=== PATIENT | female | born 1935 | race Caucasian/White ===

== ENCOUNTER 2016-11-11 09:19 | Outpatient (CLI) | payer OTHER ==
[2016-11-11 10:30] LABS: ALBUMIN/GLOBULIN RATIO 2.3 (1.0-2.2); BILIRUBIN,TOTAL 2.4 mg/dL (0.2-1.0); BUN - BLOOD UREA NITROGEN 15 mg/dL (6-20); CALCIUM 9.6 mg/dL (8.5-10.3); CARBON DIOXIDE - CO2 29 mmol/L (21-32); CHLORIDE 104 mmol/L (101-111); CHOL/HDL RATIO 2.6 (<4.4); CHOLESTEROL 157 mg/dL; CREATININE 0.6 mg/dL (0.4-1.0); GFR - MDRD 95 (>89); GLUCOSE 103 mg/dL (70-100); HDL CHOLESTEROL 60 mg/dL; LDL/HDL RATIO 1.4 (<4.4); POTASSIUM 4.2 mmol/L (3.5-5.0); SODIUM 140 mmol/L (135-145); TOTAL PROTEIN 6.2 g/dL (6.7-8.2); TRIGLYCERIDES 79 mg/dL; VLDL CHOLESTEROL 16 mg/dL
== END 2016-11-11 09:20 | disposition home or self-care (01) ==
LOC: LAB 09:19
PROVIDERS: ATTEND Physician Assistant Medical
DX: Z51.81 Encounter for therapeutic drug level monitoring (principal)
CPT/HCPCS: 36415; 80053; 80061

== ENCOUNTER 2017-08-10 17:15 | Outpatient (CLI) | payer MEDICARE | END 2017-08-10 17:16 | disposition home or self-care (01) | LOC: LAB.N 17:15 | PROVIDERS: ATTEND Family Medicine | DX: Z53.9 Procedure and treatment not carried out, unspecified reason (principal) | CPT/HCPCS: 36415; 80053; 80061; 83721 ==

== ENCOUNTER 2017-09-25 09:28 | Outpatient (CLI) | payer MEDICARE | END 2017-09-25 09:29 | disposition EMS.NT | LOC: EMS 09:28 | PROVIDERS: ATTEND Surgery | DX: Z03.89 Encounter for observation for other suspected diseases and conditions ruled out (principal) ==

== ENCOUNTER 2017-09-25 17:01 | Outpatient (CLI) | payer MEDICARE ==
--- NOTE | 2017-09-25 17:44 | XRAY Report ---
EXAM: THORACIC SPINE RADIOGRAPHY EXAM DATE: 09/25/2017 05:32 PM. CLINICAL HISTORY: ELDERLY FALL. COMPARISON: None. TECHNIQUE: 2 views. FINDINGS: Alignment: No spondylolisthesis. Mild left convexity mid thoracic scoliosis. Bones: No fractures or bone lesions. Disks: Diffuse age-related disk and endplate degenerative changes. Soft Tissues: Normal. The visualized lungs and cardiomediastinal silhouette are normal. IMPRESSION: No acute compression fracture. [facility] Referring Provider Line: [phone] SITE ID: [id number]
--- NOTE | 2017-09-25 17:46 | XRAY Preliminary Report ---
Exam: XR LUMBAR SPINE 2 VIEW IMPRESSION: 1. No acute fracture. 2. Advanced, diffuse disk related degenerative changes. [facility] SITE ID: [id number]
--- NOTE | 2017-09-25 17:46 | XRAY Report ---
EXAM: LUMBOSACRAL SPINE RADIOGRAPHY EXAM DATE: 09/25/2017 05:32 PM. CLINICAL HISTORY: ELDERLY FALL. COMPARISONS: None. TECHNIQUE: 2 views. FINDINGS: Alignment: Mild thoracolumbar kyphosis. Bones: Five cca-ddp-rjkogyv lumbar vertebral bodies are present. No fractures or bone lesions. Disks: Moderate to severe degenerative disk space narrowing with associated endplate sclerosis and sp urring at T12-L1, L1-L2, L2-L3, L3-L4 and L4-L5. Is also mild degenerative disk disease at L5-S1. Facets: Mild multilevel lower lumbar facet joint arthropathy. Sacroiliac Joints: Unremarkable. Soft Tissues: Normal. The visualized bowel gas pattern is normal. IMPRESSION: 1. No acute fracture. 2. Advanced, diffuse disk related degenerative changes. [facility] Referring Provider Line: [phone] SITE ID: [id number]
--- NOTE | 2017-09-25 17:51 | CT Report ---
EXAM: CT CERVICAL SPINE WITHOUT CONTRAST DATE: 09/25/2017 05:26 PM. HISTORY: ELDERLY FALL. COMPARISONS: None. TECHNIQUE: Thin-section axial images were acquired of the cervical spine without contrast. Post-proce ssing: Coronal and sagittal reformats. Other: None. In accordance with CT protocol optimization, one or more of the following dose reduction techniques w ere utilized for this exam: automated exposure control, adjustment of mA and/or KV based on patient s ize, or use of iterative reconstructive technique. FINDINGS: Alignment: No scoliosis or spondylolisthesis. Bones: No fracture or bone lesion. Interspace Levels/Facets: C4-C5 degenerative disk space narrowing with posterior bulging disk osteoph yte complex resulting in mild bilateral neural foraminal stenosis. Asymmetric bulging disk osteophyte complex at C5-C6 and C6-C7 resulting in mild left neural foraminal stenosis. Fusion of the left C3-C 4 posterior elements likely degenerative. Musculature: Normal. No fatty atrophy. Other: The paravertebral and prevertebral soft tissues are unremarkable. Bilateral carotid artery lisa cified plaque noted. There is a tortuous, medialized right common and internal carotid artery. IMPRESSION: 1. No cervical spine fracture or malalignment. 2. Disk and facet joint related degenerative changes resulting in mild bilateral neural foraminal efe nosis at C4-C5 and the left neural frontal stenosis at C5-C6 and C6-C7. 3. Right retropharyngeal carotid artery. [facility] Referring Provider Line: [phone] SITE ID: [id number]
--- NOTE | 2017-09-25 17:51 | CT Preliminary Report ---
Exam: CT CERVICAL SPINE W/O IMPRESSION: 1. No cervical spine fracture or malalignment. 2. Disk and facet joint related degenerative changes resulting in mild bilateral neural foraminal efe nosis at C4-C5 and the left neural frontal stenosis at C5-C6 and C6-C7. 3. Right retropharyngeal carotid artery. [facility] SITE ID: [id number]
--- NOTE | 2017-09-25 18:08 | CT Report ---
EXAM: CT HEAD EXAM DATE: 09/25/2017 05:25 PM. CLINICAL HISTORY: 82-year-old with frequent falls and recent fall on the morning of 09/25/2017 presenti ng with headache and dizziness COMPARISON: CT head 02/02/2014. TECHNIQUE: Multiaxial CT images were obtained from the foramen magnum to the vertex. Reformats: Coron al. IV contrast: None. In accordance with CT protocol optimization, one or more of the following dose reduction techniques w ere utilized for this exam: automated exposure control, adjustment of mA and/or KV based on patient s ize, or use of iterative reconstructive technique. FINDINGS: Parenchyma: No acute parenchymal hemorrhage, mass, or midline shift. There is mild bilateral areas wi th Attenuation seen similar to 02/06/2014. No convincing CT evidence of acute infarct. Extraaxial Spaces: Prominence of the sulci that appear appropriate for the extent of volume loss. No subdural or epidural collections identified. Cisterns appear patent. Ventricles: Normal in size and position. Sinuses and Orbits: Changes of bilateral lens replacement. Visualized paranasal sinuses, mastoid air cells, and middle ear cavities appear clear. Bones: No evidence of fracture or calvarial defect. Mild to moderate bilateral temporomandibular join t osteoarthrosis. Other: Vascular calcifications of the cavernous ICA segments. IMPRESSION: 1. No definite acute intracranial hemorrhage, acute infarct, mass, hydrocephalus, or midline shift. 2. No definite calvarial fracture. 3. Mild white matter changes that appear similar to CT 02/06/2014 and may represent sequela of chronic small vessel ischemic disease. [facility] The call report notification system was initiated by Dr. Tee Flores at 18:04 hrs on 09/25. The above findings were discussed with Dr. Yenifer Dr by Dr. Tee Flores at 18:06 hrs o n 09/25/17. Referring Provider Line: [phone] SITE ID: [id number]
== END 2017-09-25 17:02 | disposition home or self-care (01) ==
LOC: DI 17:01
PROVIDERS: ATTEND Family Medicine
DX: M50.321 Other cervical disc degeneration at C4-C5 level (principal); M47.892 Other spondylosis, cervical region; M51.34 Other intervertebral disc degeneration, thoracic region; S09.90XA Unspecified injury of head, initial encounter; M51.36 Other intervertebral disc degeneration, lumbar region; M47.896 Other spondylosis, lumbar region
CPT/HCPCS: 70450; 72072; 72100; 72125

== ENCOUNTER 2017-11-23 08:00 | Outpatient (CLI) | payer MEDICARE ==
[2017-11-23 13:04] LABS: ALBUMIN 4.2 g/dL (3.2-5.5); ALBUMIN/GLOBULIN RATIO 1.8 (1.0-2.2); ALKALINE PHOSPHATASE 59 IU/L (42-121); ALT ALANINE AMINOTRANSFERASE 23 IU/L (10-60); AST ASPARTATE AMINOTRANSFERASE 39 IU/L (10-42); BILIRUBIN,TOTAL 2.1 mg/dL (0.2-1.0); BUN - BLOOD UREA NITROGEN 13 mg/dL (6-20); CARBON DIOXIDE - CO2 26 mmol/L (21-32); CHLORIDE 102 mmol/L (101-111); CHOL/HDL RATIO 3.5 (<4.4); CHOLESTEROL 167 mg/dL; CREATININE 0.6 mg/dL (0.4-1.0); GFR - MDRD 95 (>89); GLUCOSE 99 mg/dL (70-100); HDL CHOLESTEROL 48 mg/dL; LDL CHOLESTEROL,CALCULATED 91 mg/dL; LDL/HDL RATIO 1.9 (<4.4); SODIUM 135 mmol/L (135-145); TOTAL PROTEIN 6.5 g/dL (6.7-8.2); VLDL CHOLESTEROL 28 mg/dL
== END 2017-11-23 08:01 | disposition home or self-care (01) ==
LOC: LAB.N 08:00
PROVIDERS: ATTEND Family Medicine
DX: E78.5 Hyperlipidemia, unspecified (principal); Z51.81 Encounter for therapeutic drug level monitoring; Z79.899 Other long term (current) drug therapy
CPT/HCPCS: 36415; 80053; 80061; 83721

== ENCOUNTER 2018-02-15 08:00 | Outpatient (CLI) | payer MEDICARE ==
[2018-02-15 12:28] LABS: ALBUMIN 4.1 g/dL (3.2-5.5); ALBUMIN/GLOBULIN RATIO 1.9 (1.0-2.2); ALKALINE PHOSPHATASE 63 IU/L (42-121); ALT ALANINE AMINOTRANSFERASE 20 IU/L (10-60); AST ASPARTATE AMINOTRANSFERASE 33 IU/L (10-42); BILIRUBIN,TOTAL 2.1 mg/dL (0.2-1.0); BUN - BLOOD UREA NITROGEN 15 mg/dL (6-20); CARBON DIOXIDE - CO2 24 mmol/L (21-32); CHLORIDE 103 mmol/L (101-111); CHOL/HDL RATIO 3.3 (<4.4); CHOLESTEROL 157 mg/dL; CREATININE 0.6 mg/dL (0.4-1.0); GFR - MDRD 95 (>89); GLUCOSE 94 mg/dL (70-100); HDL CHOLESTEROL 47 mg/dL; LDL CHOLESTEROL,CALCULATED 86 mg/dL; LDL/HDL RATIO 1.8 (<4.4); SODIUM 136 mmol/L (135-145); TOTAL PROTEIN 6.3 g/dL (6.7-8.2); VLDL CHOLESTEROL 24 mg/dL
== END 2018-02-15 08:01 | disposition home or self-care (01) ==
LOC: LAB.N 08:00
PROVIDERS: ATTEND Family Medicine
DX: E78.5 Hyperlipidemia, unspecified (principal)
CPT/HCPCS: 36415; 80053; 80061; 83721

== ENCOUNTER 2018-08-19 12:24 | Outpatient (CLI) | payer MEDICARE ==
--- NOTE | 2018-08-19 16:03 | XRAY Report ---
Reason: SACROILIAC JOINT PAIN,LEFT Procedure Date: 08/19/2018 Accession Number: [id number] / [id number] Procedure: XR - Lumbar Spine 2 View CPT Code: FULL RESULT: EXAM: LUMBOSACRAL SPINE RADIOGRAPHY EXAM DATE: 08/19/2018 01:25 PM. CLINICAL HISTORY: Sacroiliac joint pain, left. COMPARISONS: LUMBAR SPINE 2 VIEW 09/25/2017 5:16 PM. TECHNIQUE: 3 views. FINDINGS: Alignment: Approximately 7 mm of lateral translation of L4 on L5 appears stable compared to prior. No spondylolisthesis is identified. Bones: The bones are qualitatively osteopenic; this limits evaluation for underlying fractures or masses. Five dji-fgt-zreowjp lumbar vertebral bodies are present. No fractures or bone lesions. Disks: Redemonstration of multilevel degenerative disk disease with loss of disk space height throughout the lumbar spine with endplate sclerosis and marginal osteophytosis. Facets: Redemonstration of marked multilevel facet arthropathy which is severe at the L4 and L5 levels. Sacroiliac Joints: Stable appearance without overt sclerosis or fracture. Soft Tissues: Normal. The visualized bowel gas pattern is normal. IMPRESSION: Marked degenerative changes of the lumbar spine with stable appearance of sacroiliac joints. [facility]
== END 2018-08-19 12:25 | disposition home or self-care (01) ==
LOC: DI 12:24
PROVIDERS: ATTEND Family Medicine
DX: M53.3 Sacrococcygeal disorders, not elsewhere classified (principal); M51.36 Other intervertebral disc degeneration, lumbar region
CPT/HCPCS: 72100

== ENCOUNTER 2019-01-14 08:00 | Outpatient (CLI) | payer MEDICARE | END 2019-01-14 23:59 | disposition home or self-care (01) | LOC: LAB.R 08:00 | PROVIDERS: ATTEND Family Medicine | DX: R19.7 Diarrhea, unspecified (principal) | CPT/HCPCS: 81599; 83630; 87045; 87046; 87329; 87493 ==

== ENCOUNTER 2019-08-08 08:00 | Outpatient (CLI) | payer MEDICARE ==
[2019-08-08 13:00] LABS: CHOL/HDL RATIO 3.3 (<4.4); CHOLESTEROL 150 mg/dL; HDL CHOLESTEROL 45 mg/dL; LDL CHOLESTEROL,CALCULATED 78 mg/dL; LDL/HDL RATIO 1.7 (<4.4); VLDL CHOLESTEROL 27 mg/dL
== END 2019-08-08 23:59 | disposition home or self-care (01) ==
LOC: LAB.N 08:00
PROVIDERS: ATTEND Family Medicine
DX: E78.5 Hyperlipidemia, unspecified (principal)
CPT/HCPCS: 36415; 80061; 83721

== ENCOUNTER 2019-08-09 09:22 | Outpatient (CLI) | payer MEDICARE | END 2019-08-09 09:23 | disposition home or self-care (01) | LOC: DI 09:22 | PROVIDERS: ATTEND Family Medicine | DX: R01.1 Cardiac murmur, unspecified (principal); I08.0 Rheumatic disorders of both mitral and aortic valves; I11.9 Hypertensive heart disease without heart failure | CPT/HCPCS: 93306 ==

== ENCOUNTER 2020-07-31 19:00 | Emergency (ER) | payer MEDICARE ==
[2020-07-31 19:12] VITALS: BP 172/77
[2020-07-31] MEDS ORDERED: TRANEXAMIC ACID 1,000 MG/10 ML VIAL NAS STA (19:54)
[2020-07-31 20:01] LABS: BASOPHILS % (AUTO) 0.2 %; EOSINOPHILS % (AUTO) 0.2 %; HGB - HEMOGLOBIN 10.5 g/dL (12.0-16.0); LYMPHOCYTES # (AUTO) 0.6 10^3/uL (1.5-3.5); LYMPHOCYTES % (AUTO) 13.5 %; MEAN CORPUSCULAR HEMOGLOBIN 34.5 pg (27.0-31.0); MEAN CORPUSCULAR HGB CONC 32.5 g/dL (32.0-36.0); MEAN CORPUSCULAR VOLUME 106.3 fL (81.0-99.0); MONOCYTES # (AUTO) 0.9 10^3/uL (0.0-1.0); MONOCYTES % (AUTO) 21.4 %; NEUTROPHILS # (AUTO) 2.6 10^3/uL (1.5-6.6); RED BLOOD COUNT 3.04 10^6/uL (4.20-5.40); RED CELL DISTRIBUTION WIDTH 17.4 % (12.0-15.0); WHITE BLOOD COUNT 4.1 x10^3/uL (4.8-10.8)
[2020-07-31 20:16] LABS: PLT - PLATELET COUNT 32 10^3/uL (130-450)
--- NOTE | 2020-07-31 20:30 | ED Physician Documentation ---
History of Present Illness - Stated complaint Stated Complaint: NOSE BLEED - Chief complaint Chief Complaint: Heent - History obtained from History obtained from: Patient - History of Present Illness Timing: Today Pain level max: 0 Pain level now: 0 - Additonal information Additional information: 85 year old female with a history of myelodysplastic syndrome presents to the emergency department with intermittent epistaxis since receiving a Covid swab yesterday. She has chronic thrombocytopenia. Not anticoagulated. Not currently bleeding. 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 : None HEENT: Chronic vision loss Psych: None Musculoskeletal: None Derm: None Other Past Medical History: MDS - Past Surgical History Past Surgical History: Yes Ortho: Knee replacement HEENT: Tonsil/Adenoidectomy - Present Medications Home Medications: Ambulatory Orders Medication Instructions Recorded Confirmed Acetaminophen [Tylenol] 650 mg PO HS 02/01/13 07/31/20 Calcium Carbonate [Calcium] 600 mg PO BID 02/01/13 07/31/20 Cholecalciferol (Vitamin D3) 0 unit PO DAILY 02/01/13 07/31/20 [Vitamin D] Flecainide [Tambocar] 100 mg PO Q12H 02/01/13 07/31/20 Multivitamin [Multivitamins] 1 each PO DAILY 02/01/13 07/31/20 Potassium Chloride [Klor-Con 10] 10 meq PO DAILY 02/01/13 07/31/20 Simvastatin 10 mg PO HS 02/01/13 07/31/20 Oxybutynin [Ditropan] 10 mg PO DAILY 09/02/16 07/31/20 Suvorexant [Belsomra] 5 mg PO DAILY 10/28/16 07/31/20 LORazepam [Lorazepam] 0.5 mg PO DAILY PRN #30 tablet 02/24/18 07/31/20 Nystatin/Triamcin 1 applic TOP DAILY 07/31/20 07/31/20 [Nystatin-Triamcinolone Cream] - Allergies Allergies/Adverse Reactions: Allergies Allergy/AdvReac Type Severity Reaction Status Date / Time No Known Drug Allergies Allergy Verified 07/31/20 19:06 - Social History Does the pt smoke?: No Smoking Status: Never smoker Does the pt drink ETOH?: No Does the pt have substance abuse?: No - Immunizations Immunizations are current?: Yes PD ED PE NORMAL - Vitals Vital signs reviewed: Yes - General General: Alert and oriented X 3, No acute distress - HEENT HEENT: PERRL, Moist mucous membranes, Pharynx benign, Other (dried blood in R nare.) - Neck Neck: Supple, no meningeal sign - Cardiac Cardiac: RRR, Strong equal pulses - Respiratory Respiratory: No respiratory distress, Clear bilaterally - Derm Derm: Warm and dry - Neuro Neuro: Alert and oriented X 3 Results - Vitals Vitals: Vital Signs - 24 hr 07/31/20 19:07 Temperature 36.5 C Heart Rate 89 Respiratory 18 Rate Blood Pressure 172/77 H O2 Saturation 98 Oxygen O2 Source Room air - Labs Labs: Laboratory Tests 07/31/20 19:55 WBC 4.1 L RBC 3.04 L Hgb 10.5 L Hct 32.3 L MCV 106.3 H MCH 34.5 H MCHC 32.5 RDW 17.4 H Plt Count 32 L* MPV TNP Neut # (Auto) 2.6 Lymph # (Auto) 0.6 L [place] # (Auto) 0.9 Eos # (Auto) 0.0 Baso # (Auto) 0.0 Absolute Nucleated RBC 0.03 Nucleated RBC % 0.7 Platelet Estimate DECREASED (<130,000) Platelet Morphology 1+ LARGE PLATELETS RBC Morph Micro Appear 1+ OVALOCYTES PD MEDICAL DECISION MAKING - ED course Complexity details: reviewed results, considered differential, d/w patient, d/w family ED course: Patient with chronic thrombocytopenia that is unchanged. No new lab abnormalities. No further bleeding in the emergency department. Intranasal TXA was used to stabilize the clot. Patient counseled not to blow or pick her nose for the next several days to help stabilize the clot. Patient counseled regarding signs and symptoms for which I believe and urgent re-evaluation would be necessary. Patient with good understanding of and agreement to plan and is comfortable going home at this time This document was made in part using voice recognition software. While efforts are made to proofread this document, sound alike and grammatical errors may occur. Departure - Departure Disposition: 01 Home, Self Care Clinical Impression: Epistaxis Condition: Good Instructions: ED Nosebleed Follow-Up: Dedra Pereira DO [Primary Care Provider] - Within 1 week Comments: Return if you worsen. Follow up with your doctor for further care as needed. You can use the nose clamp for any further bleeding. Discharge Date/Time: 07/31/20 20:35
[2020-07-31 20:40] LABS: PLATELET ESTIMATE, MANUAL DECREASED (<130,000) (NORMAL); PLATELET MORPHOLOGY 1+ LARGE PLATELETS (NORMAL)
== END 2020-07-31 20:35 | disposition home or self-care (01) ==
LOC: ED 19:00
DX: R04.0 Epistaxis (principal); D69.6 Thrombocytopenia, unspecified; D46.9 Myelodysplastic syndrome, unspecified; I10 Essential (primary) hypertension
CPT/HCPCS: 36415; 85025; 99283; 99284

== ENCOUNTER 2020-10-26 12:50 | Emergency (ER) | payer MEDICARE ==
--- NOTE | 2020-10-26 13:30 | ED Physician Documentation ---
PD HPI SKIN - Stated complaint Stated Complaint: LUMP ON NECK - Chief complaint Chief Complaint: Wound - History obtained from History obtained from: Patient - History of Present Illness Timing - onset: How many days ago (3) Timing - duration: Days (3) Timing - details: Abrupt onset, Still present (she has had small lump at upper right back/lower neck for about a year, not tender. Has gotten increasingly larger with redness and tender the past 3 days. No drainage.) Location: Back (right upper, just below lateral neck.) Quality / character: Painful, Discolored (red at site and surrounding.), Raised, Swelling. 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 : None HEENT: Chronic vision loss Psych: None Musculoskeletal: None Derm: None - Past Surgical History Past Surgical History: Yes Ortho: Knee replacement HEENT: Tonsil/Adenoidectomy - Present Medications Home Medications: Ambulatory Orders Medication Instructions Recorded Confirmed Acetaminophen [Tylenol] 650 mg PO HS 02/01/13 10/09/20 Calcium Carbonate [Calcium] 600 mg PO BID 02/01/13 10/09/20 Cholecalciferol (Vitamin D3) 0 unit PO DAILY 02/01/13 10/09/20 [Vitamin D] Flecainide [Tambocar] 100 mg PO Q12H 02/01/13 10/09/20 Multivitamin [Multivitamins] 1 each PO DAILY 02/01/13 10/09/20 Potassium Chloride [Klor-Con 10] 10 meq PO DAILY 02/01/13 10/09/20 Simvastatin 10 mg PO HS 02/01/13 10/09/20 Oxybutynin [Ditropan] 10 mg PO DAILY 09/02/16 10/09/20 Suvorexant [Belsomra] 5 mg PO DAILY 10/28/16 10/09/20 LORazepam [Lorazepam] 0.5 mg PO DAILY PRN #30 tablet 02/24/18 10/09/20 Nystatin/Triamcin 1 applic TOP DAILY 07/31/20 10/09/20 [Nystatin-Triamcinolone Cream] Doxycycline Hyclate 100 mg PO BID #14 10/26/20 Mupirocin Calcium [Mupirocin] 1 applic TP TID #15 gm 10/26/20 - Allergies Allergies/Adverse Reactions: Allergies Allergy/AdvReac Type Severity Reaction Status Date / Time diphenhydramine Allergy Unknown Verified 10/26/20 12:57 - Social History Does the pt smoke?: No Smoking Status: Never smoker Does the pt drink ETOH?: No Does the pt have substance abuse?: No - Immunizations Immunizations are current?: Yes PD ED PE NORMAL - Vitals Vital signs reviewed: Yes - General General: Alert and oriented X 3, Well developed/nourished - Derm Derm: Normal color, Warm and dry, Other (right upper back just at trapezius upper border with rounded, raised, red fluctuance skin abscess with some central friability of the skin (looks red and thin) but not draining. Surrounding tissue with redness and tenderness. Abscess is about 2.5 cm diameter and raised 1 cm. ) - Neuro Neuro: Alert and oriented X 3, No motor deficit, No sensory deficit, Normal speech Results - Vitals Vitals: Vital Signs - 24 hr 10/26/20 10/26/20 12:57 14:27 Temperature 36.6 C 36.8 C Heart Rate 80 79 Respiratory 16 16 Rate Blood Pressure 147/63 H 141/65 H O2 Saturation 97 97 Oxygen O2 Source Room air - Labs Labs: Microbiology 10/26/20 14:16 Wound Culture - Preliminary Back - Upper Procedures - Abscess I&D (location) right upper thoracic back Preparation: Lidocaine 1%, With epi Incision: Incised with scalpel, Purulent drainage (as well as thicker sebaceum), Irrigated, Culture obtained. No: Packed Other: Pt tolerated well, Dressing applied, Antibiotic prescribed PD MEDICAL DECISION MAKING - ED course Complexity details: considered differential (upper back (upper right thoracic) abscess that seems initially sebaceous cyst that is now infected. ), d/w patient Departure - Departure Disposition: 01 Home, Self Care Clinical Impression: Abscess of back Condition: Stable Record reviewed to determine appropriate education?: Yes Instructions: ED Abscess IandD Follow-Up: Dedra Pereira DO [Primary Care Provider] - Prescriptions: Doxycycline Hyclate 100 mg PO BID #14 Mupirocin Calcium [Mupirocin] 1 applic TP TID #15 gm Comments: You can put warm moist towels over the area periodically to help dry out some of the infection fluid and provide good blood flow to the area. Its not clear show that you do so however. It is okay to wash and shower as usual. Clean the area with soap and water twice daily and apply mupirocin antibiotic ointment locally to the area. Regular dressing over it as its likely to have some drainage over the next few days. Doxycycline antibiotic twice daily for the next week. We did do a culture of the purulent fluid and the results of that should come in a couple of days. We will call you if we need to modify the antibiotic choice based on that. Tylenol every 4 hours if needed for pains. Discharge Date/Time: 10/26/20 14:35
[2020-10-26] MEDS ORDERED: ACETAMINOPHEN 325 MG TABLET PO STA (14:05)
[2020-10-26] MEDS ORDERED: DOXYCYCLINE 100 MG TABLET PO STA (14:05)
[2020-10-26 14:28] VITALS: BP 141/65
== END 2020-10-26 14:35 | disposition home or self-care (01) ==
LOC: ED 12:50
DX: L02.212 Cutaneous abscess of back [any part, except buttock and flank] (principal); I10 Essential (primary) hypertension
CPT/HCPCS: 10060; 87070; 87205; 99283; A9270

== ENCOUNTER 2021-07-01 08:43 | Outpatient (CLI) | payer MEDICARE ==
[2021-07-01 09:30] LABS: CHOL/HDL RATIO 3.3 (<4.4); CHOLESTEROL 123 mg/dL; HDL CHOLESTEROL 37 mg/dL; LDL CHOLESTEROL,CALCULATED 64 mg/dL; LDL/HDL RATIO 1.7 (<4.4); TRIGLYCERIDES 109 mg/dL; VLDL CHOLESTEROL 22 mg/dL
[2021-07-01 10:27] LABS: ESTIMATED AVERAGE GLUCOSE 71 mg/dL (70-100); HEMOGLOBIN A1c% 4.1 % (4.27-6.07)
== END 2021-07-01 08:44 | disposition home or self-care (01) ==
LOC: LAB 08:43
PROVIDERS: ATTEND Family Medicine
DX: E78.5 Hyperlipidemia, unspecified (principal); R73.01 Impaired fasting glucose
CPT/HCPCS: 36415; 80061; 83036; 83721

== ENCOUNTER 2021-08-18 14:41 | Emergency (ER) | payer MEDICARE ==
[2021-08-18 14:49] VITALS: BP 137/59
[2021-08-18] MEDS ORDERED: TRANEXAMIC ACID 1,000 MG/10 ML VIAL NAS STA (14:58)
--- NOTE | 2021-08-18 15:02 | ED Physician Documentation ---
History of Present Illness - Stated complaint Stated Complaint: nose bleed - Chief complaint Chief Complaint: Heent - History obtained from History obtained from: Patient - History of Present Illness Timing: Today Pain level max: 0 Pain level now: 0 - Additonal information Additional information: This is an 86-year-old female who has had a nosebleed earlier today, resolved now. Has a history of chronic thrombocytopenia secondary to myelodysplastic syndrome. She is not anticoagulated. No trauma. Better with pressure, nothing makes it worse. 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 : None HEENT: Chronic vision loss Psych: None Musculoskeletal: None Derm: None - Past Surgical History Past Surgical History: Yes Ortho: Knee replacement HEENT: Tonsil/Adenoidectomy - Present Medications Home Medications: Ambulatory Orders Medication Instructions Recorded Confirmed Acetaminophen [Tylenol] 650 mg PO HS 02/01/13 07/16/21 Calcium Carbonate [Calcium] 600 mg PO BID 02/01/13 07/16/21 Cholecalciferol (Vitamin D3) 0 unit PO DAILY 02/01/13 07/16/21 [Vitamin D] Flecainide [Tambocar] 100 mg PO Q12H 02/01/13 07/16/21 Multivitamin [Multivitamins] 1 each PO DAILY 02/01/13 07/16/21 Potassium Chloride [Klor-Con 10] 10 meq PO DAILY 02/01/13 07/16/21 Simvastatin 10 mg PO HS 02/01/13 07/16/21 Oxybutynin [Ditropan] 10 mg PO DAILY 09/02/16 07/16/21 Suvorexant [Belsomra] 5 mg PO DAILY 10/28/16 07/16/21 LORazepam [Lorazepam] 0.5 mg PO DAILY PRN #30 tablet 02/24/18 07/16/21 Nystatin/Triamcin 1 applic TOP DAILY 07/31/20 07/16/21 [Nystatin-Triamcinolone Cream] Doxycycline Hyclate 100 mg PO BID #14 10/26/20 07/16/21 Mupirocin Calcium [Mupirocin] 1 applic TP TID #15 gm 10/26/20 07/16/21 - Allergies Allergies/Adverse Reactions: Allergies Allergy/AdvReac Type Severity Reaction Status Date / Time diphenhydramine Allergy Unknown Verified 08/18/21 14:50 - Social History Does the pt smoke?: No Smoking Status: Never smoker Does the pt drink ETOH?: No Does the pt have substance abuse?: No - Immunizations Immunizations are current?: Yes - POLST Patient has POLST: No PD ED PE NORMAL - Vitals Vital signs reviewed: Yes - General General: Alert and oriented X 3, No acute distress - HEENT HEENT: Moist mucous membranes, Other (Small amount of dried blood in the left nare. No active bleeding.) - Neck Neck: Supple, no meningeal sign - Cardiac Cardiac: RRR - Respiratory Respiratory: No respiratory distress, Clear bilaterally - Derm Derm: Warm and dry - Neuro Neuro: Alert and oriented X 3 - Psych Psych: Normal mood, Normal affect Results - Vitals Vitals: Vital Signs - 24 hr 08/18/21 14:45 Temperature 36.3 C L Heart Rate 83 Respiratory 20 Rate Blood Pressure 137/59 H O2 Saturation 97 Oxygen O2 Source Room air - Labs Labs: Laboratory Tests 08/18/21 14:56 WBC 6.3 RBC 2.52 L Hgb 9.1 L Hct 27.9 L MCV 110.7 H MCH 36.1 H MCHC 32.6 RDW 19.5 H Plt Count 22 L* MPV TNP Neut # (Auto) Not Reportable Lymph # (Auto) Not Reportable [place] # (Auto) Not Reportable Eos # (Auto) Not Reportable Baso # (Auto) Not Reportable Absolute Nucleated RBC Not Reportable Total Counted 100 Band Neuts % (Manual) 3 Reactive Lymphs % (Man) 2 Abnorm Lymph % (Manual) 0 Blast Cells % 13 H* Nucleated RBC % Not Reportable Neutrophils # (Manual) 2.8 Lymphocytes # (Manual) 1.8 Monocytes # (Manual) 0.8 Eosinophils # (Manual) 0.1 Basophils # (Manual) 0.0 Nucleated RBCs 3 Differential Comment MANUAL DIFFERENTIAL Manual Slide Review Indicated Platelet Estimate DECREASED (<130,000) Platelet Morphology 1+ LARGE PLATELETS RBC Morph Micro Appear 1+ BASO STIPPLING PD MEDICAL DECISION MAKING - ED course Complexity details: reviewed old records, reviewed results, re-evaluated linae nt, considered differential, d/w patient ED course: 86-year-old female with resolved epistaxis. Tranexamic acid was placed into the nare and pressure applied. No further bleeding. Platelets are stable. We will have her follow-up with her doctor for further care. Patient counseled regarding signs and symptoms for which I believe and urgent re-evaluation would be necessary. Patient with good understanding of and agreement to plan and is comfortable going home at this time This document was made in part using voice recognition software. While efforts are made to proofread this document, sound alike and grammatical errors may occur. Departure - Departure Disposition: 01 Home, Self Care Clinical Impression: Thrombocytopenia, Epistaxis Condition: Good Instructions: ED Nosebleed Follow-Up: Dedra Pereira DO [Primary Care Provider] - Within 1 week Comments: Please follow-up with your doctor as needed for further care. Return if you worsen. You can use the clamp at home to help hold pressure if needed. Discharge Date/Time: 08/18/21 15:35
[2021-08-18 15:16] LABS: BASOPHILS % (AUTO) 1.1 %; EOSINOPHILS % (AUTO) 4.6 %; HCT - HEMATOCRIT 27.9 % (37.0-47.0); HGB - HEMOGLOBIN 9.1 g/dL (12.0-16.0); LYMPHOCYTES % (AUTO) 24.6 %; MEAN CORPUSCULAR HEMOGLOBIN 36.1 pg (27.0-31.0); MEAN CORPUSCULAR HGB CONC 32.6 g/dL (32.0-36.0); MEAN CORPUSCULAR VOLUME 110.7 fL (81.0-99.0); MONOCYTES % (AUTO) 36.4 %; NEUTROPHILS % (AUTO) 31.7 %; RED BLOOD COUNT 2.52 10^6/uL (4.20-5.40); RED CELL DISTRIBUTION WIDTH 19.5 % (12.0-15.0); WHITE BLOOD COUNT 6.3 x10^3/uL (4.8-10.8)
[2021-08-18 15:21] LABS: SLIDE REVIEW? Indicated
[2021-08-18 15:23] LABS: ABNORMAL LYMPHS % (MANUAL) 0 %
[2021-08-18 15:59] LABS: BAND NEUTROPHILS % (MANUAL) 3 %; BLAST CELLS % (MANUAL) 13 %; EOSINOPHILS # (MANUAL) 0.1 10^3/uL (0-0.7); LYMPHOCYTES # (MANUAL) 1.8 10^3/uL (1.5-3.5); LYMPHOCYTES % (MANUAL) 26 %; MONOCYTES # (MANUAL) 0.8 10^3/uL (0.0-1.0); NEUTROPHILS # (MANUAL) 2.8 10^3/uL (1.5-6.6); NUCLEATED RBC (MANUAL) 3 %; REACTIVE LYMPHS % (MANUAL) 2 %
[2021-08-18 16:00] LABS: DIFFERENTIAL COMMENT MANUAL DIFFERENTIAL; PLATELET ESTIMATE, MANUAL DECREASED (<130,000) (NORMAL); PLATELET MORPHOLOGY 1+ LARGE PLATELETS (NORMAL)
[2021-08-18 16:01] LABS: PLT - PLATELET COUNT 22 10^3/uL (130-450)
== END 2021-08-18 15:35 | disposition home or self-care (01) ==
LOC: ED 14:41
DX: R04.0 Epistaxis (principal); D46.9 Myelodysplastic syndrome, unspecified; D75.838 Other thrombocytosis; I10 Essential (primary) hypertension; I48.91 Unspecified atrial fibrillation
CPT/HCPCS: 36415; 85025; 99282; 99283

== ENCOUNTER 2021-10-15 18:05 | Outpatient (CLI) | payer MEDICARE | END 2021-10-15 18:06 | disposition critical access hospital (66) | LOC: EMS 18:05 | DX: S50.12XA Contusion of left forearm, initial encounter (principal); W01.10XA Fall on same level from slipping, tripping and stumbling with subsequent striking against unspecified object, initial encounter; Y92.099 Unspecified place in other non-institutional residence as the place of occurrence of the external cause | CPT/HCPCS: A0425; A0429 ==

== ENCOUNTER 2021-10-15 18:30 | Emergency (ER) | payer MEDICARE ==
--- NOTE | 2021-10-15 18:23 | ED Physician Documentation ---
PD HPI UPPER EXT INJURY - Stated complaint Stated Complaint: GLF - History obtained from History obtained from: Patient, EMS - Additonal information Additional information: This is a mir 86-year-old woman with leukemia who had a trip and fall and has a skin tear with hematoma over the dorsum of the left wrist. No other injuries. No head or neck injury. Pain is mild. Tetanus is unknown. 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 : None HEENT: Chronic vision loss Psych: None Musculoskeletal: None Derm: None - Past Surgical History Past Surgical History: Yes Ortho: Knee replacement HEENT: Tonsil/Adenoidectomy - Present Medications Home Medications: Ambulatory Orders Medication Instructions Recorded Confirmed Acetaminophen [Tylenol] 650 mg PO HS 02/01/13 10/08/21 Calcium Carbonate [Calcium] 600 mg PO BID 02/01/13 10/08/21 Cholecalciferol (Vitamin D3) 0 unit PO DAILY 02/01/13 10/08/21 [Vitamin D] Flecainide [Tambocar] 100 mg PO Q12H 02/01/13 10/08/21 Multivitamin [Multivitamins] 1 each PO DAILY 02/01/13 10/08/21 Potassium Chloride [Klor-Con 10] 10 meq PO DAILY 02/01/13 10/08/21 Simvastatin 10 mg PO HS 02/01/13 10/08/21 Oxybutynin [Ditropan] 10 mg PO DAILY 09/02/16 10/08/21 Suvorexant [Belsomra] 5 mg PO DAILY 10/28/16 10/08/21 LORazepam [Lorazepam] 0.5 mg PO DAILY PRN #30 tablet 02/24/18 10/08/21 Nystatin/Triamcin 1 applic TOP DAILY 07/31/20 10/08/21 [Nystatin-Triamcinolone Cream] Doxycycline Hyclate 100 mg PO BID #14 10/26/20 10/08/21 Mupirocin Calcium [Mupirocin] 1 applic TP TID #15 gm 10/26/20 10/08/21 - Allergies Allergies/Adverse Reactions: Allergies Allergy/AdvReac Type Severity Reaction Status Date / Time diphenhydramine Allergy Unknown Verified 08/18/21 14:50 aspirin AdvReac Unknown Verified 10/15/21 18:28 lisinopril AdvReac Unknown Verified 10/15/21 18:28 - Social History Does the pt smoke?: No Smoking Status: Never smoker Does the pt drink ETOH?: No Does the pt have substance abuse?: No - Immunizations Immunizations are current?: Yes - POLST Patient has POLST: No PD ED PE NORMAL - Vitals Vital signs reviewed: Yes - General General: Alert and oriented X 3, No acute distress - Neck Neck: Supple, no meningeal sign, No bony TTP - Extremities Extremities: Other (2 cm skin tear with underlying significant hematoma on the dorsum of the left wrist with mild underlying tenderness but no limited range of motion.) - Neuro Neuro: Alert and oriented X 3, Normal speech - Psych Psych: Normal mood, Normal affect Results - Vitals Vitals: Vital Signs - 24 hr 10/15/21 18:26 Temperature 36.8 C Heart Rate 90 Respiratory 14 Rate Blood Pressure 110/54 L O2 Saturation 93 Oxygen O2 Source Room air - Rads (name of study) 4 view x-ray of the left wrist is without obvious fracture Radiology: EMP read contemporaneously Procedures - Laceration (location) L wrist Length in cm: 2 Wound type: Flap, Superficial Wound preparation: Irrigated copiously NS Skin layer closure: Dermabond, Steri strips Other: Tetanus booster given PD MEDICAL DECISION MAKING - ED course ED course: 86-year-old woman with isolated left wrist injury with swollen hematoma and overlying skin tear. The hematoma was debrided a bit and irrigated and then closed with Dermabond and Steri-Strips. Departure - Departure Disposition: 01 Home, Self Care Clinical Impression: Contusion of left wrist Qualifiers: Encounter type: initial encounter Qualified Code(s): S60.212A - Contusion of left wrist, initial encounter Tear of skin of left wrist Qualifiers: Encounter type: initial encounter Qualified Code(s): S61.512A - Laceration without foreign body of left wrist, initial encounter Condition: Good Record reviewed to determine appropriate education?: Yes Instructions: ED Laceration Ext Skin Glue Comments: For wound care, leave the Steri-Strips and glue on, you can wash with soap and water and then a nonstick dressing and a loose wrap can be placed over that. If you develop any signs of infection such as redness, increased swelling, fever or increased pain please return for reevaluation. Note for your records that she received a Tdap shot today. Discharge Date/Time: 10/15/21 18:55
[2021-10-15 18:28] VITALS: BP 110/54
[~2021-10-15 18:30] MED LIST: TETANUS/DIPHTHERIA/PERTUSSIS 0.5 ML SYRINGE IM ONE
--- NOTE | 2021-10-15 18:54 | XRAY Report ---
PROCEDURE: Wrist 4 View LT INDICATIONS: wrist inj TECHNIQUE: 4 views of the wrist were acquired. COMPARISON: None FINDINGS: Bones: No fractures or dislocations. No suspicious bony lesions. IP and first [facility] degenerative david rowing is present. Scaphoid view: No visualized fracture. Soft tissues: No suspicious soft tissue calcifications. No radiopaque foreign body. IMPRESSION: No visualized acute fracture or dislocation. However, occult injury cannot be excluded. Recommend evin rt interval imaging follow-up in 7-10 days as clinically indicated for additional evaluation. Reviewed by: Monika Buckley MD on 10/15/2021 6:53 PM PDT Approved by: Monika Buckley MD on 10/15/2021 6:53 PM PDT Station ID: [id number]
== END 2021-10-15 18:55 | disposition home or self-care (01) ==
LOC: ED 18:30
DX: S60.212A Contusion of left wrist, initial encounter (principal); S61.512A Laceration without foreign body of left wrist, initial encounter; W01.0XXA Fall on same level from slipping, tripping and stumbling without subsequent striking against object, initial encounter; I48.91 Unspecified atrial fibrillation; I10 Essential (primary) hypertension; Z23 Encounter for immunization; Z71.85 Encounter for immunization safety counseling
CPT/HCPCS: 12001; 90471; 99283

== ENCOUNTER 2021-10-27 00:40 | Outpatient (CLI) | payer MEDICARE | END 2021-10-27 00:41 | disposition short-term general hospital (02) | LOC: EMS 00:40 | DX: R04.0 Epistaxis (principal) | CPT/HCPCS: A0425; A0429 ==